=== PATIENT | male | born 1985 | race Caucasian/White ===

== ENCOUNTER 2018-06-02 19:26 | Emergency (ER) | payer SELFPAY ==
[2018-06-02 19:28] VITALS: Ht 198.1 cm
[2018-06-02 20:09] LABS: microscopic required? YES; urine erythrocyte TRACE (NEGATIVE)
[2018-06-02 20:11] LABS: BASOPHIL % 1.1 % (0-2); PLATELET COUNT 155 x10^3mcL (130-400); RED CELL DISTRIBUTION WIDTH 12.1 % (11.5-14.5)
[2018-06-02 20:26] LABS: CARBON DIOXIDE 29.8 mmol/L (21-32); CHLORIDE SERUM 106 mmol/L (98-107); GFR1 > 60 mL/min; GLUCOSE SERUM 82 mg/dL (74-106); POTASSIUM SERUM 3.9 mmol/L (3.5-5.1); SODIUM SERUM 142 mmol/L (136-145)
[2018-06-02 20:31] LABS: ALBUMIN 4.3 g/dL (3.4-5.0); ALKALINE PHOSPHATASE 118 U/L (46-116); ALT/SGPT 50 U/L (16-63); AST/SGOT 20 U/L (15-37); BILIRUBIN TOTAL 0.52 mg/dL (0.20-1.00); TOTAL PROTEIN, SERUM 7.5 g/dL (6.4-8.2)
[2018-06-02 21:39] VITALS: BP 135/78
== END 2018-06-02 21:39 | disposition home or self-care (01) ==
LOC: ED 19:26
PROVIDERS: Emergency Medicine
DX: J40 Bronchitis, not specified as acute or chronic (principal); F17.210 Nicotine dependence, cigarettes, uncomplicated; I10 Essential (primary) hypertension; F41.9 Anxiety disorder, unspecified
CPT/HCPCS: J2930; J7030; J7613; J7644; Q0092

== ENCOUNTER 2018-07-08 04:23 | Emergency (ER) | payer BC ==
[~2018-07-08] VITALS: Ht 198.1 cm; Wt 117.9 kg
[2018-07-08 04:26] VITALS: Ht 198.1 cm; Wt 117.9 kg
[2018-07-08 06:45] VITALS: BP 130/93
== END 2018-07-08 06:45 | disposition home or self-care (01) ==
LOC: ED 04:23
DX: R07.89 Other chest pain (principal); R05 Cough; F17.210 Nicotine dependence, cigarettes, uncomplicated; I10 Essential (primary) hypertension; F41.9 Anxiety disorder, unspecified; Z71.6 Tobacco abuse counseling
CPT/HCPCS: 99406